=== PATIENT | female | born 1955 | race Caucasian/White ===

== ENCOUNTER 2020-04-20 15:57 | Emergency (ER) | payer OTHER ==
[~2020-04-20] VITALS: Ht 152.4 cm; Wt 56.2 kg
[2020-04-20 16:05] VITALS: Ht 152.4 cm; Wt 56.2 kg
[2020-04-20 19:19] VITALS: BP 137/84
== END 2020-04-20 19:19 | disposition home or self-care (01) ==
LOC: ED 15:57
DX: S01.81XA Laceration without foreign body of other part of head, initial encounter (principal); I10 Essential (primary) hypertension; W18.30XA Fall on same level, unspecified, initial encounter; Y93.89 Activity, other specified; Y92.89 Other specified places as the place of occurrence of the external cause; Y99.8 Other external cause status
CPT/HCPCS: 90715; J2001